=== PATIENT | female | born 1995 | race Caucasian/White ===

== ENCOUNTER 2021-08-10 12:11 | Emergency (ER) | payer SELFPAY ==
[~2021-08-10 12:11] MED LIST: COLACE 100MG C100 MG PO; FLEXERIL 10 MG10 MG PO; IBUPROFEN600 MG PO
[2021-08-10 14:14] LABS: HEMOGLOBIN 18.5 gm/dl (12.3-15.3); WHITE BLOOD COUNT 29.2 K/UL (4.5-11.0)
[2021-08-10 14:17] LABS: RED BLOOD COUNT 7.03 M/UL (4.00-5.10)
[2021-08-10 14:38] LABS: BUN/CREATININE RATIO 22 (0-10)
[2021-08-10] MEDS ORDERED: FLAGYL500 MG PO ×2 (14:57→17:50)
[2021-08-10] MEDS ORDERED: AUGMENTIN 875-1 EACH PO ×2 (14:58→17:50)
[2021-08-10] MEDS ORDERED: ZOFRAN4 MG PO (14:58)
[2021-08-10] MEDS ORDERED: ONDANSETRON ODT4 MG SL (17:50)
== END 2021-08-10 18:22 | disposition home or self-care (01) ==
LOC: ER1 12:11
PROVIDERS: Physician Assistant
DX: K52.9 Noninfective gastroenteritis and colitis, unspecified (principal); N39.0 Urinary tract infection, site not specified; F17.290 Nicotine dependence, other tobacco product, uncomplicated
CPT/HCPCS: 80053; 81001; 83605; 83690; 84703; 85025; 87040; 87086; 96374; 96375; 99284; Q9967

== ENCOUNTER 2021-08-12 04:55 | Inpatient (IN) | payer SELFPAY ==
[~2021-08-12] VITALS: Ht 175.3 cm; Wt 95.3 kg
[~2021-08-12 04:55] MED LIST changes: +AUGMENTIN 875-1 EACH PO; +FLAGYL500 MG PO; +ONDANSETRON ODT4 MG SL; +ZOFRAN4 MG PO
[2021-08-12 05:33] LABS: HEMOGLOBIN 17.8 gm/dl (12.3-15.3); RED BLOOD COUNT 6.7 M/UL (4.00-5.10); WHITE BLOOD COUNT 27.2 K/UL (4.5-11.0)
[2021-08-12 05:57] LABS: BUN/CREATININE RATIO 16 (0-10)
[2021-08-12 19:13] LABS: ADENOVIRUS F 40/41 Not Detected (Negative); ASTROVIRUS Not Detected (Negative); CAMPYLOBACTER Not Detected (Negative); CLOSTRIDIUM DIFFICILE TOX A/B Not Detected (Negative); CRYPTOSPORIDIUM Not Detected (Negative); E.COLI 0157 Not Detected (Negative); ENTAMOEBA HISTOLYTICA Not Detected (Negative); ENTEROAGGREGATIVE E.COLI (EAEC Not Detected (Negative); ENTEROPATHOGENIC E.COLI (EPEC) Not Detected (Negative); ENTEROTOXIGENIC E.COLI (ETEC) Not Detected (Negative); GIARDIA LAMBLIA Not Detected (Negative); NOROVIRUS GI/GII Not Detected (Negative); PLESIOMONAS SHIGELLOIDES Not Detected (Negative); ROTOVIRUS A Not Detected (Negative); SALMONELLA Not Detected (Negative); SAPOVIRUS Not Detected (Negative); SHIG/ENTEROINVAS.ECOLI (EIEC) Not Detected (Negative); SHIGA-LIK TOX.PRO.E.COLI (STEC Not Detected (Negative); VIBRIO Not Detected (Negative); VIBRIO CHOLERAE Not Detected (Negative); YERSINIA ENTEROCOLITICA Not Detected (Negative)
[2021-08-13 05:56] LABS: HEMOGLOBIN 14.8 gm/dl (12.3-15.3); RED BLOOD COUNT 5.51 M/UL (4.00-5.10); WHITE BLOOD COUNT 16.1 K/UL (4.5-11.0)
[2021-08-13 06:10] LABS: BUN/CREATININE RATIO 14 (0-10)
[2021-08-14 09:33] LABS: HEMOGLOBIN 14.7 gm/dl (12.3-15.3); RED BLOOD COUNT 5.48 M/UL (4.00-5.10)
[2021-08-14 09:51] LABS: BUN/CREATININE RATIO 11 (0-10)
[2021-08-15 08:03] LABS: HEMOGLOBIN 13.8 gm/dl (12.3-15.3); RED BLOOD COUNT 5.06 M/UL (4.00-5.10); WHITE BLOOD COUNT 15.9 K/UL (4.5-11.0)
[2021-08-15 11:25] LABS: BUN/CREATININE RATIO 8 (0-10)
== END 2021-08-15 13:25 | disposition home or self-care (01) | DRG 178 ==
LOC: ER1 04:55 → CDU 11:20 → M/S 11:20
PROVIDERS: Student in an Organized Health Care Education/Training Program; ADMIT Internal Medicine
PROC: B24BZZ4 Ultrasonography of Heart with Aorta, Transesophageal (ICD-10-PCS; principal; 2021-08-13)
PROC: 8E0ZXY6 Isolation (ICD-10-PCS; 2021-08-13)
DX: U07.1 COVID-19 (principal); A08.39 Other viral enteritis; N39.0 Urinary tract infection, site not specified; E86.0 Dehydration; I49.5 Sick sinus syndrome; D47.3 Essential (hemorrhagic) thrombocythemia; F17.210 Nicotine dependence, cigarettes, uncomplicated; E87.6 Hypokalemia; Z83.3 Family history of diabetes mellitus
CPT/HCPCS: ECHO; 36415; 71045; 71275; 80053; 81001; 82550; 82553; 83605; 83690; 83735; 83874; 84100; 84484; 84702; 84703; 85025; 87040; 87086; 87507; 89055; 93005; 93306; 96374; 96375; 96376; 99284; 99285; C9113; J2270; J2405; J2543; J7120; Q9967; U0002

== ENCOUNTER 2022-06-23 12:33 | Emergency (ER) | payer OTHER ==
[2022-06-23] MEDS ORDERED: AMOX TR-K CLV1 EAC4 PO (15:08)
[2022-06-23] MEDS ORDERED: NAPROSYN500 MG PO (15:08)
== END 2022-06-23 16:03 | disposition home or self-care (01) ==
LOC: ER1 12:33
DX: K04.7 Periapical abscess without sinus (principal); F17.200 Nicotine dependence, unspecified, uncomplicated
CPT/HCPCS: 10160; 99283